=== PATIENT | female | born 1965 | race Caucasian/White ===

== ENCOUNTER 2018-10-25 16:52 | Emergency (ER) | payer BC ==
--- NOTE | 2018-10-25 19:40 | ED.PDOC ---
History of Present Illness - General Chief Complaint: GI Problem Stated Complaint: Nausea, vomiting Time Seen by Provider: 10/25/18 17:53 Source: patient Exam Limitations: no limitations - History of Present Illness Initial Comments: WENT TO SEE PCP TODAY FOR N/V. LAB WAS DRAWN AND PT'S PLATELETS WERE NOTED TO BE 2. WAS CONFIRMED BY SECONDARY TESTING. SHE HAD ALREADY LEFT THE OFFICE HE INSTRUCTED HER TO COME TO THE ED. SHE REPORTS NO OTHER SYMPTOMS Severity: moderate Improving Factors: nothing Worsening Factors: nothing Associated Symptoms: denies symptoms Allergies/Adverse Reactions: Allergies NO KNOWN ALLERGY Allergy (Verified 10/25/18 17:13) Home Medications: Ambulatory Orders Bimatoprost 1 drop BOTH_EYES BEDTIME 10/25/18 Brimonidine Tartrate-Timolol M [Combigan 0.2-0.5 %] 1 drop BOTH_EYES BID 10/25/18 Calcium 600 mg PO DAILY 10/25/18 Review of Systems - Review of Systems Constitutional: States: no symptoms reported EENTM: States: no symptoms reported Respiratory: Denies: cough, short of breath Cardiology: Denies: chest pain, syncope Gastrointestinal/Abdominal: Denies: nausea, vomiting Genitourinary: States: no symptoms reported Musculoskeletal: States: no symptoms reported Skin: States: no symptoms reported Neurological: States: no symptoms reported Endocrine: States: no symptoms reported Hematologic/Lymphatic: Denies: blood clots, easy bleeding, easy bruising Past Medical History (General) - Patient Medical History Hx Stroke: No Hx Congestive Heart Failure: No Hx Diabetes: No Hx MRSA: No Hx Other PMH: Yes - GLAUCOMA - Vaccination History Hx Influenza Vaccination: Yes - 2018 Hx Pneumococcal Vaccination: No - Social History Hx Tobacco Use: No Hx Alcohol Use: No Family Medical History - Family History Mother Living Status: Still Living Hx Family Diabetes: Yes Physical Exam - Physical Exam General Appearance: Alert, No apparent distress Eye Exam: bilateral normal Ears, Nose, Throat: hearing grossly normal, normal ENT inspection Neck: non-tender, full range of motion, supple, normal inspection Respiratory: lungs clear, no respiratory distress Cardiovascular/Chest: regular rate, rhythm, no murmur Gastrointestinal/Abdominal: normal bowel sounds, non tender, soft, no organomegaly Back Exam: normal inspection, no CVA tenderness Extremity: normal range of motion, non-tender, normal inspection Neurologic: no motor/sensory deficits, alert, normal mood/affect Skin Exam: normal color Lymphatic: no adenopathy Progress - Progress Progress: 10/25/18 19:43 D/W DR VASQUEZ IF WE CAN TRANSFUSE PT CAN SEE HER TOMORROW IN CLINIC O/W WILL TRANSFER FOR W/U TO [facility]. D/W ISIDORO WILL CHECK ON OUR ABILITY TO TRANSFUSE PLATELETS. 10/25/18 20:14 D/W ISIDORO, WILL PLACE IN OBSERVATION FOR PLATLET INFUSION 10/25/18 20:18 PT HAS HAD NO FURTHER VOMITING, HAS RX FOR ZOFRAN AT HOME WHICH WORKED WELL. Departure - Departure Clinical Impression: Thrombocytopenia, SPENCER (acute kidney injury) Time of Disposition: 20:15 Disposition: Discharge to Home or Self Care Condition: Fair Departure Forms: ED Discharge - Pt. Copy, Patient Portal Self Enrollment Instructions: Bleeding Precautions Referrals: Chris Banegas MD [Primary Care Provider] - 1-2 Weeks Home Medications: Ambulatory Orders Bimatoprost 1 drop BOTH_EYES BEDTIME 10/25/18 Brimonidine Tartrate-Timolol M [Combigan 0.2-0.5 %] 1 drop BOTH_EYES BID 10/25/18 Calcium 600 mg PO DAILY 10/25/18
[2018-10-25] MEDS: predniSONE 20 MG TAB PO ONE (20:28)
[2018-10-25 22:18] VITALS: BP 156/103; O2SAT 99
[2018-10-25 22:39] VITALS: TEMP 98.2
== END 2018-10-26 00:38 | disposition home or self-care (01) ==
LOC: ER 16:52
DX: D69.6 Thrombocytopenia, unspecified (principal); N17.9 Acute kidney failure, unspecified; R11.2 Nausea with vomiting, unspecified
CPT/HCPCS: 36415; 86850; 86900; 86901; J7512; P9035

== ENCOUNTER → 2018-10-25 | Outpatient (CLI) | payer BC | LOC: GMAM 16:59 | PROVIDERS: ATTEND Family Medicine | DX: R11.2 Nausea with vomiting, unspecified (principal) ==

== ENCOUNTER → 2019-03-21 | Outpatient (CLI) | payer BC, MEDICARE | LOC: GMAM 10:15 | PROVIDERS: ATTEND Family Medicine | DX: I10 Essential (primary) hypertension (principal) ==

== ENCOUNTER → 2019-05-16 | Outpatient (CLI) | payer BC, MEDICARE ==
--- NOTE | 2019-05-16 14:04 | RAD ---
EXAM DESCRIPTION: Wrist,Right 3 Views CLINICAL HISTORY: 54 years, Female, LOCALIZED [place], [place] UPPER LIMB WRIST COMPARISON: None TECHNIQUE: AP/ lateral/ oblique views of the right wrist. FINDINGS: Right wrist study shows no fracture or dislocation. Carpal relationships are well-maintained. No significant arthritic changes are observed. IMPRESSION: 1. Normal study Electronically signed by: Chris Arora MD 05/16/2019 2:02 PM [facility] [[email or web address]]
== END ==
LOC: RAD 08:51
PROVIDERS: ATTEND Orthopaedic Surgery
DX: R22.31 Localized swelling, mass and lump, right upper limb (principal)

== ENCOUNTER → 2020-08-03 | Outpatient (CLI) | payer MEDICARE, BC | LOC: GMAM 14:19 | PROVIDERS: ATTEND Family Medicine | DX: D50.9 Iron deficiency anemia, unspecified (principal); D64.9 Anemia, unspecified; D72.828 Other elevated white blood cell count; E53.8 Deficiency of other specified B group vitamins ==